=== PATIENT | female | born 1980 | race Caucasian/White ===

== ENCOUNTER → 2025-01-04 | Outpatient (CLI) | payer OTHER ==
[2025-01-04 15:19] LABS: INR 0.9 (<1.2); Partial Thromboplastin Time 23.8 sec (22.0-30.0); Prothrombin Time 10.3 sec (10.0-12.5)
[2025-01-04 18:41] LABS: Prealbumin 27.7 mg/dL (18.0-42.0)
[2025-01-04 19:07] LABS: % Iron Saturation 15.19 (12.00-45.00); ALT 25 U/L (8-44); AST 25 U/L (13-35); Albumin 4.1 g/dL (3.8-4.9); Albumin/Globulin Ratio 1.78 Ratio (1.60-3.17); Alkaline Phosphatase 48 U/L (41-126); BUN/Creat Ratio 29.83 Ratio (12.00-20.00); Blood Urea Nitrogen 17.9 mg/dL (9.0-27.0); Calcium 9.1 mg/dL (8.7-10.3); Chloride 102 mmol/L (96-109); Globulin 2.3 g/dL (1.6-3.3); Glucose 93 mg/dL (70-110); Iron 48 UG/DL (50-170); LDL Cholesterol,Calculated 56.9 mg/dL (0.0-131.0); Phosphorus 3.6 mg/dL (2.4-5.1); Potassium 4.1 mmol/L (3.5-5.5); Sodium 141 mmol/L (135-145); Total Bilirubin 0.2 mg/dL (0.3-1.2); Total Iron Binding Capacity 316 UG/DL (228-460); Total Protein 6.4 g/dL (6.2-8.2)
[2025-01-04 19:09] LABS: HCT 41.6 % (37.2-46.3); HGB 13.1 g/dL (12.0-15.0); MCH 28.4 pg (27.0-32.0); MCHC 31.5 g/dL (32.0-37.0); MCV 90.2 FL (80.0-97.0); Mean Platelet Volume 9.6 FL (9.5-12.2); NRBC Per 100 WBC 0 X 10*3/uL (0.00-0.01); Platelet Count 384 X 10*3/uL (140-440); RBC 4.61 X 10*6/uL (4.10-5.20); RDW 13.7 % (11.5-14.5); WBC 11.25 X 10*3/uL (4.50-10.00)
[2025-01-05 12:35] LABS: Zinc, Serum 64 ug/dL (60-130)
[2025-01-06 08:35] LABS: Vit B1(Thiamine) 89 ug/L (38-122)
[2025-01-06 09:57] LABS: Vitamin A 64 ug/dL (38-106)
== END | disposition home or self-care (01) ==
LOC: LABWHC1 14:21
PROVIDERS: ATTEND Surgery Plastic and Reconstructive Surgery
DX: E55.9 Vitamin D deficiency, unspecified (principal); E66.01 Morbid (severe) obesity due to excess calories; E44.0 Moderate protein-calorie malnutrition; E45 Retarded development following protein-calorie malnutrition; E89.1 Postprocedural hypoinsulinemia; D50.8 Other iron deficiency anemias; D50.9 Iron deficiency anemia, unspecified; K50.90 Crohn's disease, unspecified, without complications; K74.1 Hepatic sclerosis; N19 Unspecified kidney failure; T56.894A Toxic effect of other metals, undetermined, initial encounter
CPT/HCPCS: 84255; 84134; 84425; 80061; 80053; 82607; 82728; 82525; 82746; 83540; 83550; 83735; 84100; 84443; 84590; 84630; 85027; 85610; 85730; 80307; 83970; 83036; 36415; G0483; G0480; 80323; 80377

== ENCOUNTER 2025-02-13 07:02 | Day surgery (SDC) | payer BC, OTHER ==
[2025-02-13 07:26] VITALS: TEMP 97.2
[2025-02-13 07:57] LABS: Glucose,Whole Blood 146 mg/dL (70-110)
[2025-02-13] MEDS: LACTATED RINGERS 1,000 ML IV SCH (07:59)
[2025-02-13] MEDS: LACTATED RINGERS 1,000 ML IV ONE (07:59)
[2025-02-13] MEDS ORDERED: LIDOCAINE 1% INJ 10MG/ML (20 ML MDV) ONE (08:00)
[2025-02-13] MEDS ORDERED: PROPOFOL 10 MG/ML 20 ML VIAL IV ONE (08:00)
--- NOTE | 2025-02-13 08:10 | P.GSHP ---
History of Present Illness H&P Date: 02/13/25 CHIEF COMPLAINT: GERD, dysphagia and colon screen HISTORY OF PRESENT ILLNESS: The patient is a 44-year-old female who presents with gastroesophageal reflux disease, dysphagia and need for colon screen. She has strong family history of colon cancer in her father. Upper and lower endoscopy were offered for further evaluation and management. PAST MEDICAL HISTORY: Please see list. PAST SURGICAL HISTORY: Please see list. MEDICATIONS: Please see list. ALLERGIES: Please see list. SOCIAL HISTORY: No illicit drug use FAMILY HISTORY: No reports of Crohn disease or ulcerative colitis. REVIEW OF ORGAN SYSTEMS: CONSTITUTIONAL: No reports of fevers or chills. GI: Denies any blood in stools or constipation. PHYSICAL EXAM: VITAL SIGNS: Stable GENERAL: Well-developed pleasant in no acute distress. HEENT: No scleral icterus. Extraocular movements grossly intact. Moist buccal mucosa. NECK: Supple without lymphadenopathy. CHEST: Unlabored respirations. Equal bilateral excursions. CARDIOVASCULAR: Regular rate and rhythm. Distal 2+ pulses. ABDOMEN: Soft, nondistended. MUSCULOSKELETAL: No clubbing, cyanosis, or edema. ASSESSMENT: 1. Gastroesophageal reflux disease 2. Colon screen. 3. Dysphagia 4. Family history colon cancer, father PLAN: 1. Recommend proceeding with an upper and lower endoscopy Past Medical History Past Medical History: Asthma, Diabetes Mellitus, GERD/Reflux, Hyperlipidemia, Osteoarthritis (OA), Skin Disorder Additional Past Medical History / Comment(s): migraines, chronic back pain/sciatica, neuropathy, lung nodules, hx intra abdominal abscess-with syringe drainage, left breast lump-benign. not on mounjaro at this time(due to insurance) - watching diet.has a diabetic pill to take for blood sugar over 350. Altace for liver enzymes. insterstitial cystitis. psoriasis History of Any Multi-Drug Resistant Organisms: None Reported Past Surgical History: Section, Cholecystectomy, Orthopedic Surgery Additional Past Surgical History / Comment(s): ERCP post gallbladder removal with stent and stent removal, Arthroscopy bilateral knees, Left Breast Lumpectomy. Past Anesthesia/Blood Transfusion Reactions: Previous Problems w/ Anesthesia Additional Past Anesthesia/Blood Transfusion Reaction / Comment(s): pt states she wakes up early Smoking Status: Former smoker - Past Family History Mother Family Medical History: COPD, CVA/TIA Father Family Medical History: Cancer, Coronary Artery Disease (CAD), Diabetes Mellitus, Hypertension Additional Family Medical History / Comment(s): of heart attack, colon cancer Medications and Allergies Home Medications Medication Instructions Recorded Confirmed Type Albuterol Inhaler [Ventolin Hfa 1 puff INHALATION DIRECTED PRN 01/04/25 02/13/25 History Inhaler] Atorvastatin [Lipitor] 20 mg PO DAILY 01/04/25 02/13/25 History Elderberry Fruit [Elderberry] 350 mg PO DAILY 01/04/25 02/13/25 History FLUoxetine HCL [PROzac] 10 mg PO DAILY 01/04/25 02/13/25 History Loratadine [Claritin] 10 mg PO DAILY 01/04/25 02/13/25 History Multivitamins, Thera [Multivitamin 1 tab PO DAILY 01/04/25 02/13/25 History (formulary)] Sodium, Potassium,Mag Sulfates 354 ml PO DIRECTED #1 kit 01/04/25 02/13/25 Rx [Suprep Bowel Prep Kit] Tirzepatide [Mounjaro] 2.5 mg SQ GUERRA 01/04/25 02/13/25 History ramipriL [Altace] 2.5 mg PO DAILY 01/04/25 02/13/25 History Aspirin/Acetaminophen/Caffeine 1 each PO DIRECTED 02/09/25 02/13/25 History [Excedrin Extra Strength Caplet] Unk Oral Diabetic Med 1 tab PO DIRECTED PRN 02/09/25 02/13/25 History Allergies Allergy/AdvReac Type Severity Reaction Status Date / Time adhesive tape Allergy blisters Verified 02/13/25 07:31 and dermatitis bee venom protein (honey bee) Allergy Anaphylaxis Verified 02/13/25 07:31 cephalexin [From Keflex] Allergy Rash/Hives Verified 02/13/25 07:31 insulin aspart Allergy Rash/Hives Verified 02/13/25 07:31 latex Allergy dermatitis Verified 02/13/25 07:31 blisters linagliptin [From Tradjenta] Allergy Anaphylaxis Verified 02/13/25 07:31 liraglutide [From Victoza] Allergy Rash/Hives Verified 02/13/25 07:31 metformin Allergy Diarrhea Verified 02/13/25 07:31 Penicillins Allergy Unknown Verified 02/13/25 07:31 Surgical - Exam Vital Signs Temp Pulse Resp BP Pulse Ox 97.2 F L 82 18 136/70 96 02/13/25 07:21 02/13/25 07:21 02/13/25 07:21 02/13/25 07:21 02/13/25 07:21 Results - Labs Abnormal Lab Results - Last 24 Hours (Table) 02/13/25 Range/Units 07:57 POC Glucose (mg/dL) 146 H (70-110) mg/dL
[2025-02-13 08:35] VITALS: RESP 16
--- NOTE | 2025-02-13 08:43 | P.PCN ---
Date of Procedure: 02/13/25 Description of Procedure: PREOPERATIVE DIAGNOSIS: Gastroesophageal reflux disease. Morbid obesity. Dysphagia POSTOPERATIVE DIAGNOSIS: Gastroesophageal reflux disease. Gastritis. OPERATION: Esophagogastroduodenoscopy with cold forceps biopsies along esophagus, antrum and duodenum SURGEON: Carrie Gallardo MD ANESTHESIA: MAC. INDICATIONS: The patient is a 44-year-old female who presents with reflux disease. Benefits and risks of the procedure were described. Informed consent was obtained. DESCRIPTION: The patient was brought into the endoscopy suite and laid in the left lateral decubitus position. An Olympus gastroscope was passed along the posterior oropharynx down to the distal esophagus where the squamocolumnar junction was encountered at 35 cm from the incisors. The stomach was entered and no bile reflux was found. Additional findings are listed below. Biopsies with cold forceps were obtained of the antrum. The first through third portion of the duodenum was examined. Retroflexion of the scope confirmed Hill grade 2 lower esophageal valve. The squamocolumnar junction demonstrated LA grade A erosive esophagitis. The stomach was desufflated. The patient tolerated the procedure well. During procedure, patient had acute oxygen desaturation with risk of sleep apnea. FINDINGS: Squamocolumnar junction 35 cm from the incisors. Diaphragmatic hiatus at 35 cm. Hill grade 2 lower esophageal valve. LA grade A erosive esophagitis. Biopsies obtained of the duodenum. Chronic gastritis with biopsies obtained. Acute oxygen desaturation with risk of sleep apnea RECOMMENDATIONS: Upper endoscopy as needed. Recommend assessment for obstructive sleep apnea
[2025-02-13 08:58] VITALS: BP 125/66; PULSE 70
--- NOTE | 2025-02-13 09:00 | P.PCN ---
Date of Procedure: 02/13/25 Description of Procedure: PREOPERATIVE DIAGNOSIS: Colonoscopy screening. Family history of colon cancer, father POSTOPERATIVE DIAGNOSIS: Colonoscopy screening. Diverticulosis, scattered. Internal/external hemorrhoids, grade 2 OPERATION: Colonoscopy to the cecum, ileocecal valve and appendiceal orifice. SURGEON: Carrie Gallardo MD. ANESTHESIA: MAC. INDICATIONS: The patient is a 59-year-old female who presents for colonoscopy screening. Benefits and risks were described and informed consent was obtained. DESCRIPTION OF PROCEDURE: The patient had undergone Suprep. The patient had been brought into the operating room and laid in the left lateral decubitus position. After adequate intravenous sedation, the rectum was examined with 2% lidocaine jelly. No external hemorrhoids were encountered. The rectal tone was within normal limits. No lesions were palpated in the rectal vault. An Olympus colonoscope was advanced until the cecum, ileocecal valve and appendiceal orifice were clearly viewed. The prep was good. Scattered diverticulosis was encountered. No colonic polyps were found. No evidence of focal colitis was found. Retroflexion of the scope demonstrated grade 2 internal hemorrhoids without active bleeding or inflammation. The colon was desufflated. The patient had tolerated the procedure well. Withdrawal time was over 6 minutes. FINDINGS: Aronchick preparation quality scale 1+ (1-5) Internal hemorrhoids, grade 2 External prolapsed hemorrhoids, grade 2 No arteriovenous malformations. No adenomatous polyps. No focal colitis. RECOMMENDATIONS: Lower endoscopy in 3 years, 2027 Plan - Discharge Summary Discharge Rx Participant: No New Discharge Prescriptions: Continue Elderberry Fruit [Elderberry] 350 mg PO DAILY ramipriL [Altace] 2.5 mg PO DAILY FLUoxetine HCL [PROzac] 10 mg PO DAILY Tirzepatide [Mounjaro] 2.5 mg SQ GUERRA Albuterol Inhaler [Ventolin Hfa Inhaler] 1 puff INHALATION DIRECTED PRN PRN Reason: Shortness Of Breath Sodium, Potassium,Mag Sulfates [Suprep Bowel Prep Kit] 354 ml PO DIRECTED #1 kit Multivitamins, Thera [Multivitamin (formulary)] 1 tab PO DAILY Loratadine [Claritin] 10 mg PO DAILY Atorvastatin [Lipitor] 20 mg PO DAILY Unk Oral Diabetic Med 1 tab PO DIRECTED PRN PRN Reason: blood sugar >350 Aspirin/Acetaminophen/Caffeine [Excedrin Extra Strength Caplet] 1 each PO DIRECTED Discharge Medication List Albuterol Inhaler [Ventolin Hfa Inhaler] 1 puff INHALATION DIRECTED PRN 01/04/25 [History] Atorvastatin [Lipitor] 20 mg PO DAILY 01/04/25 [History] Elderberry Fruit [Elderberry] 350 mg PO DAILY 01/04/25 [History] FLUoxetine HCL [PROzac] 10 mg PO DAILY 01/04/25 [History] Loratadine [Claritin] 10 mg PO DAILY 01/04/25 [History] Multivitamins, Thera [Multivitamin (formulary)] 1 tab PO DAILY 01/04/25 [History] Sodium, Potassium,Mag Sulfates [Suprep Bowel Prep Kit] 354 ml PO DIRECTED #1 kit 01/04/25 [Rx] Tirzepatide [Mounjaro] 2.5 mg SQ GUERRA 01/04/25 [History] ramipriL [Altace] 2.5 mg PO DAILY 01/04/25 [History] Aspirin/Acetaminophen/Caffeine [Excedrin Extra Strength Caplet] 1 each PO DIRECTED 02/09/25 [History] Unk Oral Diabetic Med 1 tab PO DIRECTED PRN 02/09/25 [History] [facility] [facility] [place] [place] 03/01/25 3:00 pm Patient Instructions/Handouts: *Surgery [facility] - (Anesthesia) Discharge Instructions Outpatient Surgery, Sleep Apnea (GEN), Gastritis (DC), Diverticulosis (DC) Activity/Diet/Wound Care/Special Instructions: Repeat colonoscopy 3 years, 2027 Discharge Disposition: HOME SELF-CARE
== END 2025-02-13 10:01 | disposition home or self-care (01) ==
LOC: ORWHC2ENDO 07:02
PROVIDERS: ATTEND Surgery Plastic and Reconstructive Surgery
DX: Z12.11 Encounter for screening for malignant neoplasm of colon (principal); K21.00 Gastro-esophageal reflux disease with esophagitis, without bleeding; K29.50 Unspecified chronic gastritis without bleeding; K57.30 Diverticulosis of large intestine without perforation or abscess without bleeding; K64.1 Second degree hemorrhoids; K64.4 Residual hemorrhoidal skin tags; Z80.0 Family history of malignant neoplasm of digestive organs; E66.01 Morbid (severe) obesity due to excess calories; E11.9 Type 2 diabetes mellitus without complications; E78.5 Hyperlipidemia, unspecified; J45.909 Unspecified asthma, uncomplicated; Z87.891 Personal history of nicotine dependence; Z79.82 Long term (current) use of aspirin; Z79.85 Long-term (current) use of injectable non-insulin antidiabetic drugs; Z88.0 Allergy status to penicillin; Z88.1 Allergy status to other antibiotic agents; Z88.8 Allergy status to other drugs, medicaments and biological substances
CPT/HCPCS: 81025; 45378; 43239; J2003; J2704; 88305

== ENCOUNTER → 2025-03-01 | Outpatient (CLI) | payer BC ==
[2025-03-01 17:24] VITALS: BP 124/79; PULSE 76; RESP 16; TEMP 98.1; BMI 52.7
--- NOTE | 2025-03-01 18:05 | P.BASOAP ---
Subjective Progress Note Date: 03/01/25 She comes in with sleep apnea. She reports difficulty with PCP. She has not seen her PCP. Sleep apnea for severe oxygen level. Iron supplement. EKG normal. Journal reviewed with cards 40 grams. Needs iron. Objective - Vital Signs Vital signs: Vital Signs Temp 98.1 F 03/01/25 17:21 Pulse 76 03/01/25 17:21 Resp 16 03/01/25 17:21 BP 124/79 03/01/25 17:21 Pulse Ox FiO2 Intake & Output 02/28/25 03/01/25 03/01/25 18:59 06:59 18:59 Weight 121.563 kg Assessment/Plan Plan: Date: 03/01/25 Initial Weight: 121.109 kg Initial BMI: 52.5 Current Weight: 121.563 kg Current BMI: 52.7 Type of Surgery: Total Volume in Band: Previous Volume: Volume Removed: Volume Added: Band Size:
== END ==
LOC: BARWHC3 16:24
PROVIDERS: ATTEND Surgery Plastic and Reconstructive Surgery
DX: E66.01 Morbid (severe) obesity due to excess calories (principal); F12.90 Cannabis use, unspecified, uncomplicated; Z68.43 Body mass index [BMI] 50.0-59.9, adult; Z91.048 Other nonmedicinal substance allergy status; Z91.030 Bee allergy status; Z91.040 Latex allergy status; Z88.0 Allergy status to penicillin; Z88.8 Allergy status to other drugs, medicaments and biological substances
CPT/HCPCS: 99211

== ENCOUNTER → 2025-03-20 | Outpatient (CLI) | payer BC ==
[2025-03-20 14:24] VITALS: BMI 54.5
== END ==
LOC: BARWHC3 12:59
PROVIDERS: ATTEND Surgery Plastic and Reconstructive Surgery
DX: E66.01 Morbid (severe) obesity due to excess calories (principal); F12.90 Cannabis use, unspecified, uncomplicated; Z91.048 Other nonmedicinal substance allergy status; Z91.030 Bee allergy status; Z88.1 Allergy status to other antibiotic agents; Z88.8 Allergy status to other drugs, medicaments and biological substances; Z91.040 Latex allergy status; Z68.43 Body mass index [BMI] 50.0-59.9, adult
CPT/HCPCS: 97804; 99211